=== PATIENT | female | born 1940 | race Caucasian/White ===

== ENCOUNTER 2016-07-23 09:10 | Outpatient (CLI) | payer MEDICARE, OTHER | END 2016-07-23 09:11 | disposition home or self-care (01) | DX: R73.01 Impaired fasting glucose (principal); E03.9 Hypothyroidism, unspecified; N39.0 Urinary tract infection, site not specified; K21.9 Gastro-esophageal reflux disease without esophagitis; I10 Essential (primary) hypertension; Z79.899 Other long term (current) drug therapy ==

== ENCOUNTER 2016-08-05 09:25 | Outpatient (CLI) | payer MEDICARE, OTHER | END 2016-08-05 09:26 | disposition home or self-care (01) | DX: Z01.818 Encounter for other preprocedural examination (principal); N81.4 Uterovaginal prolapse, unspecified ==

== ENCOUNTER 2017-07-19 08:00 | Outpatient (CLI) | payer MEDICARE, OTHER | END 2017-07-19 23:59 | disposition home or self-care (01) | LOC: LAB.WCP 08:00 | PROVIDERS: ATTEND Family Medicine | DX: K52.9 Noninfective gastroenteritis and colitis, unspecified (principal) | CPT/HCPCS: 81599; 83630; 87045; 87046; 87329; 87493 ==

== ENCOUNTER 2017-07-27 08:00 | Outpatient (CLI) | payer MEDICARE, OTHER | END 2017-07-27 23:59 | disposition home or self-care (01) | LOC: LAB.R 08:00 | PROVIDERS: ATTEND Family Medicine | DX: K52.9 Noninfective gastroenteritis and colitis, unspecified (principal) | CPT/HCPCS: 83630; 87045; 87046; 87493 ==

== ENCOUNTER 2017-09-14 20:36 | Emergency (ER) | payer MEDICARE, OTHER ==
[2017-09-14] MEDS ORDERED: ONDANSETRON 4 MG/2 ML VIAL ONE (21:19)
[2017-09-14] MEDS ORDERED: ONDANSETRON 4 MG/2 ML VIAL IVP STA (21:23)
[2017-09-14 22:04] LABS: BASOPHILS # (AUTO) 0.1 10^3/uL (0.0-0.1); BASOPHILS % (AUTO) 1.3 %; EOSINOPHILS # (AUTO) 0.2 10^3/uL (0.0-0.7); EOSINOPHILS % (AUTO) 2.5 %; HGB - HEMOGLOBIN 13.8 g/dL (12.0-16.0); LYMPHOCYTES # (AUTO) 2.2 10^3/uL (1.5-3.5); MEAN CORPUSCULAR HEMOGLOBIN 30.1 pg (27.0-31.0); MEAN CORPUSCULAR HGB CONC 33.2 g/dL (32.0-36.0); MEAN CORPUSCULAR VOLUME 90.5 fL (81.0-99.0); MONOCYTES # (AUTO) 0.6 10^3/uL (0.0-1.0); MONOCYTES % (AUTO) 6.1 %; NEUTROPHILS # (AUTO) 6.2 10^3/uL (1.5-6.6); NEUTROPHILS % (AUTO) 66.1 %; PLT - PLATELET COUNT 320 10^3/uL (130-450); RED BLOOD COUNT 4.57 10^6/uL (4.20-5.40); RED CELL DISTRIBUTION WIDTH 12.8 % (12.0-15.0); WHITE BLOOD COUNT 9.4 x10^3/uL (4.8-10.8)
[2017-09-14] MEDS ORDERED: SODIUM CHLORIDE 0.9% 1,000 ML IV ONE (22:10)
[2017-09-14] MEDS ORDERED: MORPHINE 10 MG/ML VIAL IVP STA (22:10)
[2017-09-14 22:18] LABS: ALBUMIN 4.7 g/dL (3.2-5.5); ALBUMIN/GLOBULIN RATIO 1.6 (1.0-2.2); CALCIUM 9.5 mg/dL (8.5-10.3); CREATININE 0.8 mg/dL (0.4-1.0); TOTAL PROTEIN 7.7 g/dL (6.7-8.2)
[2017-09-14 22:37] LABS: BILIRUBIN,URINE NEGATIVE (NEGATIVE); GLUCOSE, URINE (UA) NEGATIVE (NEGATIVE); KETONES,URINE (UA) 40 mg/dL (NEGATIVE); LEUKOCYTE ESTERASE, URINE NEGATIVE (NEGATIVE); NITRITE,URINE NEGATIVE (NEGATIVE); OCCULT BLOOD,URINE NEGATIVE (NEGATIVE); PH,URINE 7.5 PH (5.0-7.5); PROTEIN,URINE NEGATIVE (NEGATIVE); UROBILINOGEN,URINE 0.2 (NORMAL) E.U./dL (NORMAL)
[2017-09-14 22:46] LABS: CLARITY,URINE CLEAR (CLEAR)
[2017-09-15] MEDS ORDERED: IOPAMIDOL-300 100 ML VIAL ONE (00:15)
[2017-09-15] MEDS ORDERED: IOPAMIDOL-300 100 ML VIAL IVP ONE (00:50)
--- NOTE | 2017-09-15 01:41 | CT Report ---
EXAM: CT ABDOMEN AND PELVIS EXAM DATE: 09/15/2017 12:24 AM. CLINICAL HISTORY: Right lower quadrant abdominal pain COMPARISONS: None. TECHNIQUE: Routine helical CT imaging was performed through the abdomen and pelvis. IV contrast: ISOV UE 300 100mL. Enteric contrast: No. Reconstructions: Coronal and sagittal. In accordance with CT protocol optimization, one or more of the following dose reduction techniques w ere utilized for this exam: automated exposure control, adjustment of mA and/or KV based on patient s ize, or use of iterative reconstructive technique. FINDINGS: Lung Bases: Unremarkable. Liver: There is a 1.3 cm right hepatic lobe hypodensity most likely representing hemangioma versus cy st. Liver is otherwise unremarkable. Gallbladder/Bile Ducts: Unremarkable. Spleen: Normal. Pancreas: Normal. Adrenal Glands: Normal. Kidneys: Normal. No masses or hydronephrosis. Peritoneal Cavity/Bowel: Diverticulosis without diverticulitis.. No free fluid, free air or adenopath y. No masses or acute inflammatory process. No evidence of appendicitis. Pelvic Organs: The uterus has been removed. No pelvic mass. There are bladder is unremarkable. Vasculature: No aneurysms or other significant abnormality. Bones: L5-S1 disk related degenerative changes. No acute bony abnormality. Other: None. IMPRESSION: 1. No evidence of appendicitis or other acute inflammatory process. 2. Diverticulosis. [facility] Referring Provider Line: [phone] SITE ID: [id number]
--- NOTE | 2017-09-15 01:41 | CT Preliminary Report ---
Exam: CT Abdomen/Pelvis W/ IMPRESSION: 1. No evidence of appendicitis or other acute inflammatory process. 2. Diverticulosis. [facility] SITE ID: [id number]
--- NOTE | 2017-09-15 01:48 | ED Physician Documentation ---
PD HPI ABD PAIN - Stated complaint Stated Complaint: RT SIDE PAIN - Chief complaint Chief Complaint: Abd Pain - History obtained from History obtained from: Patient, Family - History of Present Illness Timing - onset: Today Timing - details: Abrupt onset, Still present Quality: Cramping, Aching Location: RLQ Associated symptoms: Nausea, Constipation. No: Fever, Vomiting, Diarrhea, Dysuria, Hematuria Similar symptoms before: Has not had sx before Recently seen: Not recently seen - Additional information Additional information: Patient is a 76 year old female who is presenting to the emergency department for abdominal pain. patient states that the pain started this morning and was in her right lower quadrant. Patient complained of mild nausea but no vomiting. Patient denied vaginal bleeding, vaginal discharge, dysuria or hematuria. Review of Systems Constitutional: denies: Fever, Chills Eyes: reports: Reviewed and negative Ears: reports: Reviewed and negative Nose: reports: Reviewed and negative Throat: reports: Reviewed and negative Cardiac: denies: Chest pain / pressure, Palpitations Respiratory: denies: Dyspnea, Cough, Wheezing GI: reports: Abdominal Pain, Nausea, Constipation. denies: Vomiting, Diarrhea : denies: Dysuria, Frequency, Hesitancy Skin: denies: Rash, Lesions Musculoskeletal: denies: Back pain Immunocompromised: denies: Immunocompromised PD PAST MEDICAL HISTORY - Past Medical History Past Medical History: Yes Cardiovascular: Hypertension Respiratory: Sleep apnea Endocrine/Autoimmune: HyPOthyroidism GI: GERD : None Psych: None Musculoskeletal: None Derm: Psoriasis - Past Surgical History General: Colonoscopy /[employer]: Tubal ligation, Other - Present Medications Home Medications: Ambulatory Orders Medication Instructions Recorded Confirmed Levothyroxine Sodium 50 mcg PO DAILY 06/03/16 06/04/16 Multivitamin [Multivitamins] 1 each PO DAILY 06/03/16 06/04/16 [place]-3 Fatty Acids [Fish Oil] 300 mg PO BID 06/03/16 06/04/16 Triamterene/Hydrochlorothiazid 0.5 each PO DAILY 06/03/16 06/04/16 [Triamterene-Hctz 37.5-25 mg Tb] raNITIdine HCl [Ranitidine HCl] 150 mg PO DAILY 06/03/16 06/04/16 Dicyclomine [Bentyl] 10 mg PO QID #14 capsule 09/15/17 Ondansetron Odt [Zofran] 4 mg TL Q6H PRN #14 tablet 09/15/17 - Allergies Allergies/Adverse Reactions: Allergies Allergy/AdvReac Type Severity Reaction Status Date / Time No Known Drug Allergies Allergy Verified 09/14/17 20:52 - Social History Does the pt smoke?: No Smoking Status: Never smoker Does the pt drink ETOH?: Yes Does the pt have substance abuse?: No - Immunizations Immunizations are current?: Yes PD ED PE NORMAL - Vitals Vital signs reviewed: Yes - General General: Alert and oriented X 3, No acute distress - HEENT HEENT: Atraumatic, PERRL - Neck Neck: No JVD - Cardiac Cardiac: RRR - Respiratory Respiratory: No respiratory distress - Abdomen Abdomen: Soft - Derm Derm: Normal color, Warm and dry, No rash - Extremities Extremities: No deformity - Neuro Neuro: Alert and oriented X 3 Eye Opening: Spontaneous Motor: Obeys Commands Verbal: Oriented GCS Score: 15 PD ED PE EXPANDED - HEENT HEENT: Dry mucous membranes - Abdomen Abdomen: Tender to palpation, RLQ Results - Vitals Vitals: Vital Signs - 24 hr 09/14/17 09/14/17 09/15/17 20:53 21:25 00:47 Temperature 36.7 C Heart Rate 79 78 77 Respiratory 20 18 16 Rate Blood Pressure 134/70 H 181/111 H 132/93 H O2 Saturation 100 100 97 Oxygen O2 Source Room air - Labs Labs: Laboratory Tests 09/14/17 09/14/17 09/14/17 21:40 21:40 22:17 WBC 9.4 RBC 4.57 Hgb 13.8 Hct 41.4 MCV 90.5 MCH 30.1 MCHC 33.2 RDW 12.8 Plt Count 320 MPV 8.0 Neut # 6.2 Lymph # 2.2 [place] # 0.6 Eos # 0.2 Baso # 0.1 Absolute Nucleated RBC 0.00 Nucleated RBC % 0.0 Sodium 126 L Potassium 3.4 L Chloride 94 L Carbon Dioxide 20 L Anion Gap 12.0 BUN 13 Creatinine 0.8 Estimated GFR (MDRD) 69 L Glucose 122 H Calcium 9.5 Total Bilirubin 1.0 AST 27 ALT 27 Alkaline Phosphatase 76 Total Protein 7.7 Albumin 4.7 Globulin 3.0 Albumin/Globulin Ratio 1.6 Lipase 38 Urine Color YELLOW Urine Clarity CLEAR Urine pH 7.5 Ur Specific [place] 1.015 Urine Protein NEGATIVE Urine Glucose (UA) NEGATIVE Urine Ketones 40 H Urine Occult Blood NEGATIVE Urine Nitrite NEGATIVE Urine Bilirubin NEGATIVE Urine Urobilinogen 0.2 (NORMAL) Ur Leukocyte Esterase NEGATIVE Ur Microscopic Review NOT INDICATED Urine Culture Comments NOT INDICATED - Rads (name of study) ct abd pelvis Radiology: Final report received (no appendicitis or other inflammatory process) PD MEDICAL DECISION MAKING - ED course Complexity details: reviewed old records, reviewed results, re-evaluated patient , considered differential, d/w patient, d/w family ED course: patient was seen and examined at bedside. IV access was gained and labs were drawn. Urine was collected. Patient was started on an ns bolus and morphine 6mg. Patient's urinalysis showed no sign of infection. Imaging was ordered. When patient returned from imaging patient was re-evaluated and stated that her pain had resolved. Patient's CT was within normal limits. patient required no further work up and was stable for discharge with outpatient follow up. Departure - Departure Disposition: Home, Self Care Clinical Impression: Abdominal pain Condition: Good Instructions: ED Abdominal Pain Unkn Cause Follow-Up: Meng Ewing MD [Primary Care Provider] - Within 3 Days Prescriptions: Dicyclomine [Bentyl] 10 mg PO QID #14 capsule Ondansetron Odt [Zofran] 4 mg TL Q6H PRN #14 tablet PRN Reason: Nausea / Vomiting Comments: Your diagnostics today were within normal limits. There is no sign of appendicitis or other infection. It is difficult to say what caused your pain but it is unlikely to be life threatening in nature. If the pain return you can take motrin, tylenol, maalox, bentyl and zofran as needed for the pain. If your symptoms persist you should follow up with your doctor for further evaluation. You may return to the emergency department at any time for new, worsening or uncontrollable symptoms.
[2017-09-15 01:58] VITALS: BP 141/92
== END 2017-09-15 02:00 | disposition home or self-care (01) ==
LOC: ED 20:36
DX: R10.31 Right lower quadrant pain (principal); R11.0 Nausea; K59.00 Constipation, unspecified; I10 Essential (primary) hypertension; E03.9 Hypothyroidism, unspecified; K21.9 Gastro-esophageal reflux disease without esophagitis
CPT/HCPCS: 36415; 74177; 80053; 81003; 83690; 85025; 96361; 96374; 96375; 99283; Q9967; 81001; 87086

== ENCOUNTER 2017-09-17 08:00 | Outpatient (CLI) | payer MEDICARE, OTHER ==
[2017-09-17 19:06] LABS: CALCIUM 9.3 mg/dL (8.5-10.3)
== END 2017-09-17 08:01 | disposition home or self-care (01) ==
LOC: LAB.WCP 08:00
PROVIDERS: ATTEND Family Medicine
DX: E87.1 Hypo-osmolality and hyponatremia (principal)
CPT/HCPCS: 36415; 80048

== ENCOUNTER 2017-09-22 11:45 | Outpatient (CLI) | payer MEDICARE, OTHER | END 2017-09-22 11:46 | LOC: LAB.WCP 11:45 | PROVIDERS: ATTEND Family Medicine | DX: E87.1 Hypo-osmolality and hyponatremia (principal) | CPT/HCPCS: 83935; 84300 ==

== ENCOUNTER 2017-09-29 08:00 | Outpatient (CLI) | payer MEDICARE, OTHER ==
[2017-09-29 19:18] LABS: CREATININE,URINE 43.1 mg/dL
[2017-09-29 19:19] LABS: TOTAL PROTEIN,URINE TIMED < 6 mg/dL
[2017-09-29 19:21] LABS: ALBUMIN 4.1 g/dL (3.2-5.5); ALBUMIN/GLOBULIN RATIO 1.5 (1.0-2.2); ALKALINE PHOSPHATASE 74 IU/L (42-121); ALT ALANINE AMINOTRANSFERASE 25 IU/L (10-60); AST ASPARTATE AMINOTRANSFERASE 25 IU/L (10-42); BILIRUBIN,TOTAL 0.4 mg/dL (0.2-1.0); BUN - BLOOD UREA NITROGEN 11 mg/dL (6-20); CALCIUM 9.4 mg/dL (8.5-10.3); CARBON DIOXIDE - CO2 23 mmol/L (21-32); CHLORIDE 104 mmol/L (101-111); CREATININE 0.8 mg/dL (0.4-1.0); GFR - MDRD 69 (>89); GLUCOSE 126 mg/dL (70-100); SODIUM 134 mmol/L (135-145); TOTAL PROTEIN 6.8 g/dL (6.7-8.2)
== END 2017-09-29 08:01 ==
LOC: LAB.WCP 08:00
PROVIDERS: ATTEND Family Medicine
DX: E87.1 Hypo-osmolality and hyponatremia (principal); R06.09 Other forms of dyspnea
CPT/HCPCS: 36415; 80053; 82570; 83880; 84156; 84443

== ENCOUNTER 2019-04-26 08:00 | Outpatient (CLI) | payer MEDICARE, OTHER ==
[2019-04-26 13:06] LABS: BASOPHILS # (AUTO) 0.1 10^3/uL (0.0-0.1); BASOPHILS % (AUTO) 0.8 %; EOSINOPHILS # (AUTO) 0.5 10^3/uL (0.0-0.7); EOSINOPHILS % (AUTO) 7.1 %; HGB - HEMOGLOBIN 13.7 g/dL (12.0-16.0); LYMPHOCYTES # (AUTO) 2.8 10^3/uL (1.5-3.5); LYMPHOCYTES % (AUTO) 39.1 %; MEAN CORPUSCULAR HEMOGLOBIN 31.5 pg (27.0-31.0); MEAN CORPUSCULAR HGB CONC 32.8 g/dL (32.0-36.0); MEAN CORPUSCULAR VOLUME 96.1 fL (81.0-99.0); MEAN PLATELET VOLUME 10.1 fL (7.9-10.8); MONOCYTES # (AUTO) 0.5 10^3/uL (0.0-1.0); MONOCYTES % (AUTO) 7.4 %; NEUTROPHILS # (AUTO) 3.2 10^3/uL (1.5-6.6); NEUTROPHILS % (AUTO) 45.3 %; PLT - PLATELET COUNT 311 10^3/uL (130-450); RED BLOOD COUNT 4.35 10^6/uL (4.20-5.40); RED CELL DISTRIBUTION WIDTH 12.5 % (12.0-15.0); WHITE BLOOD COUNT 7.1 x10^3/uL (4.8-10.8)
[2019-04-26 15:59] LABS: ALBUMIN 3.8 g/dL (3.2-5.5); ALBUMIN/GLOBULIN RATIO 1.1 (1.0-2.2); ALKALINE PHOSPHATASE 83 IU/L (42-121); ALT ALANINE AMINOTRANSFERASE 21 IU/L (10-60); AST ASPARTATE AMINOTRANSFERASE 19 IU/L (10-42); BILIRUBIN,TOTAL 0.6 mg/dL (0.2-1.0); BUN - BLOOD UREA NITROGEN 16 mg/dL (6-20); CALCIUM 9.6 mg/dL (8.5-10.3); CARBON DIOXIDE - CO2 25 mmol/L (21-32); CHLORIDE 104 mmol/L (101-111); CHOL/HDL RATIO 3.1 (<4.4); CHOLESTEROL 191 mg/dL; GFR - MDRD 53 (>89); GLUCOSE 112 mg/dL (70-100); HDL CHOLESTEROL 61 mg/dL; LDL CHOLESTEROL,CALCULATED 105 mg/dL; LDL/HDL RATIO 1.7 (<4.4); SODIUM 136 mmol/L (135-145); TOTAL PROTEIN 7.2 g/dL (6.7-8.2); VLDL CHOLESTEROL 25 mg/dL
== END 2019-04-26 23:59 | disposition home or self-care (01) ==
LOC: LAB.WCP 08:00
PROVIDERS: ATTEND Family Medicine
DX: E78.1 Pure hyperglyceridemia (principal); E03.9 Hypothyroidism, unspecified; I10 Essential (primary) hypertension
CPT/HCPCS: 36415; 80053; 80061; 83721; 84443; 85025

== ENCOUNTER 2020-02-21 07:00 | Outpatient (CLI) | payer MEDICARE, BC ==
[2020-02-21 18:33] LABS: BASOPHILS % (AUTO) 0.4 %; EOSINOPHILS # (AUTO) 0.1 10^3/uL (0.0-0.7); EOSINOPHILS % (AUTO) 1.3 %; HGB - HEMOGLOBIN 13.4 g/dL (12.0-16.0); LYMPHOCYTES # (AUTO) 1.8 10^3/uL (1.5-3.5); LYMPHOCYTES % (AUTO) 18.8 %; MEAN CORPUSCULAR HEMOGLOBIN 31.9 pg (27.0-31.0); MEAN CORPUSCULAR HGB CONC 33.7 g/dL (32.0-36.0); MEAN CORPUSCULAR VOLUME 94.8 fL (81.0-99.0); MEAN PLATELET VOLUME 9.6 fL (7.9-10.8); MONOCYTES # (AUTO) 0.6 10^3/uL (0.0-1.0); MONOCYTES % (AUTO) 6.5 %; NEUTROPHILS % (AUTO) 72.5 %; PLT - PLATELET COUNT 349 10^3/uL (130-450); RED CELL DISTRIBUTION WIDTH 12.7 % (12.0-15.0); WHITE BLOOD COUNT 9.7 x10^3/uL (4.8-10.8)
[2020-02-21 19:04] LABS: ALBUMIN 3.8 g/dL (3.2-5.5); CREATININE 0.9 mg/dL (0.4-1.0); TOTAL PROTEIN 7.5 g/dL (6.7-8.2)
[2020-02-21 19:05] LABS: CALCIUM 9.7 mg/dL (8.5-10.3)
== END 2020-02-21 23:59 | disposition home or self-care (01) ==
LOC: LAB.WCP 07:00
PROVIDERS: ATTEND Family Medicine
DX: R19.7 Diarrhea, unspecified (principal)
CPT/HCPCS: 36415; 80053; 85025

== ENCOUNTER 2020-02-22 08:00 | Outpatient (CLI) | payer MEDICARE, BC | END 2020-02-22 08:01 | disposition home or self-care (01) | LOC: LAB.R 08:00 | PROVIDERS: ATTEND Family Medicine | DX: R19.7 Diarrhea, unspecified (principal) | CPT/HCPCS: 81599; 83630; 87045; 87046; 87329; 87427; 87493 ==

== ENCOUNTER 2020-07-05 10:27 | Outpatient (CLI) | payer MEDICARE, BC ==
[2020-07-05 18:29] LABS: CHOLESTEROL 198 mg/dL
[2020-07-05 18:49] LABS: HEMOGLOBIN A1c% 5.8 % (4.27-6.07)
[2020-07-05 18:53] LABS: HDL CHOLESTEROL 67 mg/dL; LDL CHOLESTEROL,CALCULATED 107 mg/dL; LDL/HDL RATIO 1.6 (<4.4); VLDL CHOLESTEROL 24 mg/dL
== END 2020-07-05 23:59 | disposition home or self-care (01) ==
LOC: LAB.WCP 10:27
PROVIDERS: ATTEND Internal Medicine
DX: R73.01 Impaired fasting glucose (principal); I10 Essential (primary) hypertension; E03.9 Hypothyroidism, unspecified
CPT/HCPCS: 36415; 80061; 83036; 83721; 84443

== ENCOUNTER 2020-08-13 09:50 | Outpatient (CLI) | payer MEDICARE, BC ==
--- NOTE | 2020-08-13 15:00 | DEXA Report ---
PROCEDURE: Dexa Spine and/or Hip INDICATIONS: POSTMENOPAUSAL TECHNIQUE: Dual energy x-ray absorptiometry (DXA) was performed on a [employer] System. Regions measur ed are the AP Spine, femoral neck, and if needed forearm. COMPARISON: None. FINDINGS: Lumbar Spine: Bone Mineral Density 1.049 g/cm/cm,T score -1.1, osteopenia Left Hip: Bone Mineral Density 0.865 g/cm/cm,T score -1.1, osteopenia Left Femoral Neck: Bone Mineral Density 0.795 g/cm/cm, T score -1.8, osteopenia (T score greater or equal to -1.0: NORMAL) (T score from -1.1 to -2.4: OSTEOPENIA) (T score less than or equal to -2.5 to: OSTEOPOROSIS) Impression: Osteopenia at the lumbosacral spine, left hip and left femoral neck. Patients with diagnosis of osteoporosis or osteopenia should have regular bone mineral density assess ment. For those eligible for Medicare, routine testing is allowed once every 2 years. Testing frequ ency can be increased for patients who have rapidly progressing disease or for those who are receivin g medical therapy to restore bone mass. Reviewed by: Levi Starr MD on 08/13/2020 1:59 PM [facility] Approved by: Levi Starr MD on 08/13/2020 1:59 PM [facility] Station ID: [id number]
== END 2020-08-13 09:51 | disposition home or self-care (01) ==
LOC: DI 09:50
PROVIDERS: ATTEND Internal Medicine
DX: M85.89 Other specified disorders of bone density and structure, multiple sites (principal); Z78.0 Asymptomatic menopausal state

== ENCOUNTER 2021-10-21 08:12 | Outpatient (CLI) | payer MEDICARE, BC ==
[2021-10-21 08:35] LABS: BASOPHILS # (AUTO) 0.1 10^3/uL (0.0-0.1); BASOPHILS % (AUTO) 0.7 %; EOSINOPHILS # (AUTO) 0.5 10^3/uL (0.0-0.7); EOSINOPHILS % (AUTO) 6.3 %; HCT - HEMATOCRIT 41.5 % (37.0-47.0); HGB - HEMOGLOBIN 13.8 g/dL (12.0-16.0); LYMPHOCYTES # (AUTO) 2.4 10^3/uL (1.5-3.5); LYMPHOCYTES % (AUTO) 32.9 %; MEAN CORPUSCULAR HEMOGLOBIN 31.1 pg (27.0-31.0); MEAN CORPUSCULAR HGB CONC 33.3 g/dL (32.0-36.0); MEAN CORPUSCULAR VOLUME 93.5 fL (81.0-99.0); MEAN PLATELET VOLUME 9.4 fL (7.9-10.8); MONOCYTES # (AUTO) 0.5 10^3/uL (0.0-1.0); MONOCYTES % (AUTO) 6.3 %; NEUTROPHILS # (AUTO) 3.8 10^3/uL (1.5-6.6); NEUTROPHILS % (AUTO) 53.5 %; PLT - PLATELET COUNT 281 10^3/uL (130-450); RED BLOOD COUNT 4.44 10^6/uL (4.20-5.40); RED CELL DISTRIBUTION WIDTH 12.4 % (12.0-15.0); WHITE BLOOD COUNT 7.1 x10^3/uL (4.8-10.8)
[2021-10-21 08:54] LABS: ALBUMIN 4.1 g/dL (3.2-5.5); ALBUMIN/GLOBULIN RATIO 1.3 (1.0-2.2); ALKALINE PHOSPHATASE 79 IU/L (42-121); ALT ALANINE AMINOTRANSFERASE 21 IU/L (10-60); AST ASPARTATE AMINOTRANSFERASE 21 IU/L (10-42); BUN - BLOOD UREA NITROGEN 20 mg/dL (6-20); CALCIUM 9.4 mg/dL (8.5-10.3); CARBON DIOXIDE - CO2 23 mmol/L (21-32); CHLORIDE 105 mmol/L (101-111); CHOL/HDL RATIO 3.6 (<4.4); CHOLESTEROL 217 mg/dL; GFR - MDRD 53 (>89); GLUCOSE 105 mg/dL (70-100); HDL CHOLESTEROL 60 mg/dL; LDL CHOLESTEROL,CALCULATED 137 mg/dL; LDL/HDL RATIO 2.3 (<4.4); POTASSIUM 4.1 mmol/L (3.5-5.0); SODIUM 137 mmol/L (135-145); TOTAL PROTEIN 7.2 g/dL (6.7-8.2); TRIGLYCERIDES 99 mg/dL; VLDL CHOLESTEROL 20 mg/dL
[2021-10-21 09:00] LABS: CREATININE,URINE 68.6 mg/dL
[2021-10-21 09:01] LABS: MICROALBUMIN,URINE < 0.2 mg/dL (0-300.0)
[2021-10-21 09:05] LABS: THYROID STIMULATING HORMONE 2.8 uIU/mL (0.34-5.60)
[2021-10-21 11:54] LABS: ESTIMATED AVERAGE GLUCOSE 126 mg/dL (70-100)
== END 2021-10-21 08:13 | disposition home or self-care (01) ==
LOC: LAB 08:12
PROVIDERS: ATTEND Internal Medicine
DX: I10 Essential (primary) hypertension (principal); R73.01 Impaired fasting glucose; E03.9 Hypothyroidism, unspecified
CPT/HCPCS: 36415; 80053; 80061; 82043; 82570; 83036; 83721; 84443; 85025

== ENCOUNTER 2022-11-23 08:39 | Outpatient (CLI) | payer MEDICARE, BC ==
[2022-11-23 09:02] LABS: BASOPHILS # (AUTO) 0.1 10^3/uL (0.0-0.1); EOSINOPHILS # (AUTO) 0.6 10^3/uL (0.0-0.7); EOSINOPHILS % (AUTO) 8.8 %; HCT - HEMATOCRIT 41.6 % (37.0-47.0); HGB - HEMOGLOBIN 13.6 g/dL (12.0-16.0); LYMPHOCYTES # (AUTO) 2.4 10^3/uL (1.5-3.5); LYMPHOCYTES % (AUTO) 35.6 %; MEAN CORPUSCULAR HEMOGLOBIN 30.6 pg (27.0-31.0); MEAN CORPUSCULAR HGB CONC 32.7 g/dL (32.0-36.0); MEAN CORPUSCULAR VOLUME 93.5 fL (81.0-99.0); MEAN PLATELET VOLUME 9.4 fL (7.9-10.8); MONOCYTES # (AUTO) 0.5 10^3/uL (0.0-1.0); MONOCYTES % (AUTO) 7.6 %; NEUTROPHILS # (AUTO) 3.2 10^3/uL (1.5-6.6); NEUTROPHILS % (AUTO) 46.7 %; PLT - PLATELET COUNT 278 10^3/uL (130-450); RED BLOOD COUNT 4.45 10^6/uL (4.20-5.40); RED CELL DISTRIBUTION WIDTH 12.6 % (12.0-15.0); WHITE BLOOD COUNT 6.8 x10^3/uL (4.8-10.8)
[2022-11-23 09:17] LABS: ALBUMIN 3.8 g/dL (3.2-5.5); ALBUMIN/GLOBULIN RATIO 1.2 (1.0-2.2); ALKALINE PHOSPHATASE 85 IU/L (42-121); ALT ALANINE AMINOTRANSFERASE 19 IU/L (10-60); AST ASPARTATE AMINOTRANSFERASE 19 IU/L (10-42); BILIRUBIN,TOTAL 0.8 mg/dL (0.2-1.0); BUN - BLOOD UREA NITROGEN 20 mg/dL (6-20); CALCIUM 9.5 mg/dL (8.5-10.3); CARBON DIOXIDE - CO2 26 mmol/L (21-32); CHLORIDE 107 mmol/L (101-111); CHOLESTEROL 198 mg/dL; CREATININE 0.9 mg/dL (0.4-1.0); GFR - MDRD 60 (>89); GLUCOSE 107 mg/dL (70-100); HDL CHOLESTEROL 65 mg/dL; LDL CHOLESTEROL,CALCULATED 105 mg/dL; LDL/HDL RATIO 1.6 (<4.4); POTASSIUM 4.8 mmol/L (3.5-5.0); SODIUM 139 mmol/L (135-145); TRIGLYCERIDES 141 mg/dL; VLDL CHOLESTEROL 28 mg/dL
[2022-11-23 09:19] LABS: MICROALBUM/CREATININE RATIO,UR 2.7 ug/mg (<30.0); MICROALBUMIN,URINE 0.2 mg/dL (0-300.0)
[2022-11-23 09:27] LABS: THYROID STIMULATING HORMONE 2.77 uIU/mL (0.34-5.60)
[2022-11-23 09:44] LABS: ESTIMATED AVERAGE GLUCOSE 126 mg/dL (70-100)
== END 2022-11-23 08:40 | disposition home or self-care (01) ==
LOC: LAB 08:39
PROVIDERS: ATTEND Internal Medicine
DX: I10 Essential (primary) hypertension (principal); R73.03 Prediabetes; E03.9 Hypothyroidism, unspecified; J45.20 Mild intermittent asthma, uncomplicated
CPT/HCPCS: 36415; 80053; 80061; 82043; 82570; 83036; 83721; 84443; 85025